=== PATIENT | female | born 1985 | race Caucasian/White ===

== ENCOUNTER 2020-08-18 17:57 | Inpatient (IN) | payer OTHER ==
[~2020-08-18] VITALS: Ht 162.6 cm; Wt 66.8 kg
[2020-08-18] MEDS ORDERED: NEWBORN KIT ONE (18:28)
[2020-08-18 18:53] LABS: BASOPHILS % (AUTO) 0 % (0-1); EOSINOPHILS % (AUTO) 0 % (1-7); LYMPHOCYTES % (AUTO) 18 % (22-44); MEAN CORPUSCULAR HEMOGLOBIN 28.9 pg (27.0-34.8); MEAN CORPUSCULAR HGB CONC 33.1 g/dL (32.4-35.8); MEAN PLATELET VOLUME 8.9 fL (7.4-10.4); MONOCYTES % (AUTO) 6 % (2-9); NEUTROPHILS % (AUTO) 76 % (42-75); PLATELET COUNT 273 x10^3/uL (130-400); RED BLOOD COUNT 3.51 x10^6/uL (3.82-5.3); RED CELL DISTRIBUTION WIDTH 13.4 % (9.6-15.2)
[2020-08-18 18:54] LABS: MD NO
[2020-08-18 18:56] LABS: ALANINE AMINOTRANSFERASE 22 U/L (12-78); ALBUMIN 2.6 g/dL (3.4-5.0); ANION GAP 6 mmol/L (5-15); CALCIUM 8.2 mg/dL (8.5-10.1); CHLORIDE 110 mmol/L (98-107); CREATININE 0.66 mg/dL (0.55-1.02)
[2020-08-18 18:57] LABS: BILIRUBIN, DIRECT < 0.1 mg/dL (0.1-0.2)
[2020-08-18 18:58] LABS: ALKALINE PHOSPHATASE 207 U/L (45-117); BILIRUBIN,TOTAL 0.4 mg/dL (0.2-1.0); TOTAL PROTEIN 6.1 g/dL (6.4-8.2)
[2020-08-18 19:10] VITALS: BP 137/84
[2020-08-18 19:54] LABS: MICROSCOPIC INDICATED
[2020-08-18] MEDS ORDERED: FENTANYL PF 100 MCG/2ML IVPush PRN (20:30)
[2020-08-18] MEDS ORDERED: TERBUTALINE 1 MG/ML, 1ML SQ PRN (20:30)
[2020-08-18] MEDS ORDERED: OXYTOCIN 30U/ 0.9% NaCL 500ML 500 ML IV ONE (20:30)
[2020-08-18] MEDS ORDERED: FENTANYL PF 100 MCG/2ML IV PRN (20:30)
[2020-08-18] MEDS ORDERED: METOCLOPRAMIDE 5 MG/ML, 2ML IVPush PRN (20:30)
[2020-08-18] MEDS ORDERED: TERBUTALINE 1 MG/ML, 1ML IVPush PRN (20:30)
[2020-08-18] MEDS: LACTATED RINGERS 1,000 ML IV SCH (20:30)
[2020-08-18] MEDS ORDERED: SODIUM CITRATE/CITRIC ACID 30 ML UDC PO PRN (20:30)
[2020-08-18] MEDS ORDERED: ONDANSETRON 2MG/ML, 2ML IVPush PRN (20:30)
[2020-08-18] MEDS: D5%-LACTATED RINGERS 1,000 ML IV SCH (20:30)
[2020-08-18] MEDS ORDERED: SODIUM CHLORIDE FLUSH 10ML SYR IVF PRN (20:30)
[2020-08-18] MEDS ORDERED: CALCIUM CARBONATE 500 MG TAB.CHEW PO PRN (20:30)
[2020-08-18] MEDS ORDERED: MISOPROSTOL 25 MCG TABLET ONE (20:40)
[2020-08-18] MEDS ORDERED: OXYTOCIN 30U/ 0.9% NaCL 500ML 500 ML ONE (21:17)
[2020-08-18] MEDS: MISOPROSTOL 25 MCG TABLET VG PRN (21:20)
[2020-08-19] MEDS ORDERED: MISOPROSTOL 25 MCG TABLET ONE (01:10)
[2020-08-19] MEDS: MISOPROSTOL 25 MCG TABLET VG PRN (01:20)
[2020-08-19] MEDS: LACTATED RINGERS 1,000 ML IV SCH ×5 (04:30→18:16)
[2020-08-19] MEDS: D5%-LACTATED RINGERS 1,000 ML IV SCH ×2 (04:30→20:30)
[2020-08-19] MEDS ORDERED: hydrALAzine 20 MG/ML, 1ML ONE (07:24)
[2020-08-19] MEDS ORDERED: LABETALOL 5MG/ML 40ML VIAL IVPush ONE (07:30)
[2020-08-19] MEDS ORDERED: hydrALAzine 20 MG/ML, 1ML IVPush ONE ×3 (07:30)
[2020-08-19] MEDS ORDERED: OXYTOCIN 30U/ 0.9% NaCL 500ML 500 ML IV PRN (08:30)
[2020-08-19] MEDS ORDERED: BUPIVACAINE 0.25% ONE (13:53)
[2020-08-19] MEDS ORDERED: DIPHENHYDRAMINE 50 MG/ML, 1ML IVPush PRN (14:00)
[2020-08-19] MEDS ORDERED: EPHEDRINE 50 MG/ML, 1ML IVPush PRN (14:00)
[2020-08-19] MEDS: FENTANYL/BUPIV./NS/PF 250 ML EPIDCONT SCH (14:00)
[2020-08-19] MEDS ORDERED: NALOXONE 0.4 MG/ML, 1ML IVPush PRN (14:00)
[2020-08-19] MEDS ORDERED: LACTATED RINGERS 1,000 ML IVBOLUS PRN (14:00)
[2020-08-19] MEDS ORDERED: ONDANSETRON 2MG/ML, 2ML IVPush PRN (14:00)
[2020-08-19] MEDS ORDERED: FENTANYL/BUPIV./NS/PF 250 ML EPIDCONT ONE (14:13)
[2020-08-20 01:39] VITALS: BP 138/68
[2020-08-20] MEDS: D5%-LACTATED RINGERS 1,000 ML IV SCH ×5 (02:00→12:30)
[2020-08-20] MEDS ORDERED: ACETAMINOPHEN 325 MG TABLET ONE ×2 (02:22→09:38)
[2020-08-20] MEDS: ACETAMINOPHEN 325 MG TABLET PO PRN ×2 (02:24→09:39)
[2020-08-20] MEDS ORDERED: ALUMINUM/MAG/SIMETHICONE 30 ML UDC PO PRN (02:30)
[2020-08-20] MEDS ORDERED: OXYTOCIN 30U/ 0.9% NaCL 500ML 500 ML ONE ×2 (02:50→15:02)
[2020-08-20] MEDS: LACTATED RINGERS 1,000 ML IV SCH ×4 (06:00→14:00)
[2020-08-20] MEDS ORDERED: AMPICILLIN 2 GM in SODIUM CHLORIDE 0.9% 100 ML IV SCH (09:00)
[2020-08-20] MEDS ORDERED: GENTAMICIN PER PHARMACY MC PRN (10:00)
[2020-08-20] MEDS ORDERED: GENTAMICIN 150 MG in SODIUM CHLORIDE 0.9% 50 ML IV ONE (12:00)
[2020-08-20] MEDS ORDERED: PHARMACOKINETIC MONITORING MC PRN (12:00)
[2020-08-20] MEDS ORDERED: FENTANYL/BUPIV./NS/PF 250 ML EPIDCONT ONE (12:25)
[2020-08-20] MEDS ORDERED: FENTANYL PF 100 MCG/2ML ONE (12:42)
[2020-08-20] MEDS ORDERED: BUPIVACAINE 0.25% ONE (12:42)
[2020-08-20] MEDS: FENTANYL/BUPIV./NS/PF 250 ML EPIDCONT SCH (14:00)
[2020-08-20] MEDS ORDERED: OXYcodone IR 5MG TABLET PO PRN (15:00)
[2020-08-20] MEDS ORDERED: ACETAMINOPHEN 325 MG TABLET PO PRN (15:00)
[2020-08-20] MEDS ORDERED: MISOPROSTOL 200 MCG TABLET PR PRN (15:00)
[2020-08-20] MEDS ORDERED: OXYcodone/APAP 5/325MG TABLET PO PRN (15:00)
[2020-08-20] MEDS ORDERED: SIMETHICONE 80 MG CHEW TAB PO PRN (15:00)
[2020-08-20] MEDS ORDERED: ONDANSETRON 2MG/ML, 2ML IV PRN (15:00)
[2020-08-20] MEDS ORDERED: IBUPROFEN 600 MG TABLET ONE (15:02)
[2020-08-20] MEDS: OXYTOCIN 30U/ 0.9% NaCL 500ML 500 ML IV SCH (15:04)
[2020-08-20] MEDS: IBUPROFEN 600 MG TABLET PO PRN ×2 (15:04→22:29)
[2020-08-20 17:00] VITALS: BP 129/68
[2020-08-20 20:00] VITALS: BP 149/84
[2020-08-20] MEDS ORDERED: GENTAMICIN 120 MG in SODIUM CHLORIDE 0.9% 50 ML IV SCH (20:00)
[2020-08-20] MEDS: DOCUSATE 100 MG CAPSULE PO PRN (22:28)
[2020-08-21] VITALS (7 sets, daily range): BP systolic 138–156; BP diastolic 61–95
[2020-08-21 00:10] LABS: MEAN CORPUSCULAR HEMOGLOBIN 29.1 pg (27.0-34.8); MEAN CORPUSCULAR HGB CONC 32.7 g/dL (32.4-35.8); MEAN PLATELET VOLUME 9.4 fL (7.4-10.4); PLATELET COUNT 233 x10^3/uL (130-400); RED BLOOD COUNT 3.11 x10^6/uL (3.82-5.3); RED CELL DISTRIBUTION WIDTH 13.9 % (9.6-15.2)
[2020-08-21] MEDS: OXYTOCIN 30U/ 0.9% NaCL 500ML 500 ML IV SCH ×2 (01:00→11:00)
[2020-08-21 01:23] LABS: MD YES
[2020-08-21 01:25] LABS: BAND#(MANUAL) 2.31 x10^3/uL; BANDS%(MANUAL) 8 % (0-7); LYMPH#(MANUAL) 1.16 x10^3/uL (1-3.4); LYMPHS% (MANUAL) 4 % (22-44); METAMYELOCYTES# (MANUAL) 0.29 x10^3/uL (0-0); METAMYELOCYTES% (MANUAL) 1 % (0-1); MONOS#(MANUAL) 0.87 x10^3/uL (0.3-2.7); MONOS% (MANUAL) 3 % (2-9); SEG#(MANUAL) 24.28 x10^3/uL (1.8-6.8); SEGS% (MANUAL) 84 % (42-75)
[2020-08-21 01:26] LABS: POLYCHROMASIA 1+
[2020-08-21 01:27] LABS: <PLATELET ESTIMATE> ADEQUATE; ECHINOCYTES 1+; OVALOCYTES 1+; TEAR DROPS 1+; TOXIC GRAN 1+
[2020-08-21 01:29] LABS: LARGE PLATELETS 1+
[2020-08-21] MEDS: PRENATAL VIT/IRON/FA 1 EACH TABLET PO SCH (08:30)
[2020-08-21] MEDS: DOCUSATE 100 MG CAPSULE PO PRN ×2 (08:30→20:13)
[2020-08-21] MEDS: IBUPROFEN 600 MG TABLET PO PRN ×2 (13:07→20:13)
[2020-08-21] MEDS ORDERED: HEMORRHOIDAL OINT, 28 GM (PREP H) RC PRN (18:00)
[2020-08-21 19:01] LABS: BASOPHILS % (AUTO) 0 % (0-1); EOSINOPHILS % (AUTO) 0 % (1-7); LYMPHOCYTES % (AUTO) 9 % (22-44); MEAN PLATELET VOLUME 8.8 fL (7.4-10.4); MONOCYTES % (AUTO) 6 % (2-9); NEUTROPHILS % (AUTO) 84 % (42-75); PLATELET COUNT 223 x10^3/uL (130-400); RED BLOOD COUNT 2.85 x10^6/uL (3.82-5.3)
[2020-08-21 19:04] LABS: MD NO
[2020-08-21 19:07] LABS: ALANINE AMINOTRANSFERASE 25 U/L (12-78); ANION GAP 3 mmol/L (5-15); CALCIUM 8.4 mg/dL (8.5-10.1); CHLORIDE 115 mmol/L (98-107)
[2020-08-21 19:12] LABS: ALKALINE PHOSPHATASE 161 U/L (45-117); BILIRUBIN,TOTAL 0.2 mg/dL (0.2-1.0); TOTAL PROTEIN 5.2 g/dL (6.4-8.2)
[2020-08-22] VITALS (8 sets, daily range): BP systolic 144–174; BP diastolic 67–92
[2020-08-22] MEDS: IBUPROFEN 600 MG TABLET PO PRN ×4 (03:01→23:32)
[2020-08-22 07:17] LABS: BASOPHILS % (AUTO) 0 % (0-1); EOSINOPHILS % (AUTO) 1 % (1-7); LYMPHOCYTES % (AUTO) 14 % (22-44); MEAN CORPUSCULAR HEMOGLOBIN 29.1 pg (27.0-34.8); MEAN CORPUSCULAR HGB CONC 33.1 g/dL (32.4-35.8); MEAN PLATELET VOLUME 9.2 fL (7.4-10.4); MONOCYTES % (AUTO) 6 % (2-9); NEUTROPHILS % (AUTO) 79 % (42-75); PLATELET COUNT 207 x10^3/uL (130-400); RED BLOOD COUNT 2.59 x10^6/uL (3.82-5.3); RED CELL DISTRIBUTION WIDTH 13.6 % (9.6-15.2)
[2020-08-22 07:24] LABS: ALANINE AMINOTRANSFERASE 20 U/L (12-78); ALBUMIN 1.9 g/dL (3.4-5.0); CALCIUM 8.3 mg/dL (8.5-10.1); CHLORIDE 116 mmol/L (98-107); CREATININE 0.68 mg/dL (0.55-1.02)
[2020-08-22 07:26] LABS: ALKALINE PHOSPHATASE 135 U/L (45-117); BILIRUBIN,TOTAL 0.3 mg/dL (0.2-1.0); TOTAL PROTEIN 4.9 g/dL (6.4-8.2)
[2020-08-22 07:35] LABS: ANION GAP 5 mmol/L (5-15)
[2020-08-22] MEDS: DOCUSATE 100 MG CAPSULE PO PRN (07:42)
[2020-08-22] MEDS: PRENATAL VIT/IRON/FA 1 EACH TABLET PO SCH (07:42)
[2020-08-22 07:53] LABS: MD NO
[2020-08-22] MEDS ORDERED: MAGNESIUM SULFATE PMX 4GM/100M 0 ML ONE (20:11)
[2020-08-22] MEDS ORDERED: MAGNESIUM SULF. PMX 20GM/500ML 500 ML IV ONE (20:11)
[2020-08-22] MEDS ORDERED: LABETALOL 5MG/ML, 20ML ONE (20:25)
[2020-08-22] MEDS ORDERED: LABETALOL 5MG/ML, 20ML IVPush PRN (20:30)
[2020-08-22] MEDS ORDERED: MAGNESIUM SULFATE PMX 4GM/100M 100 ML IVPB ONE (20:30)
[2020-08-22] MEDS ORDERED: LABETALOL 5MG/ML, 20ML IVPush STA (22:14)
[2020-08-22] MEDS ORDERED: IBUPROFEN 600 MG TABLET ONE (23:31)
[2020-08-23 03:25] LABS: BASOPHILS % (AUTO) 0 % (0-1); EOSINOPHILS % (AUTO) 1 % (1-7); LYMPHOCYTES % (AUTO) 19 % (22-44); MEAN CORPUSCULAR HEMOGLOBIN 29.1 pg (27.0-34.8); MEAN CORPUSCULAR HGB CONC 33.4 g/dL (32.4-35.8); MEAN PLATELET VOLUME 8.5 fL (7.4-10.4); MONOCYTES % (AUTO) 5 % (2-9); NEUTROPHILS % (AUTO) 76 % (42-75); PLATELET COUNT 259 x10^3/uL (130-400); RED CELL DISTRIBUTION WIDTH 14.2 % (9.6-15.2)
[2020-08-23 03:30] LABS: MD NO
[2020-08-23 03:35] LABS: ALANINE AMINOTRANSFERASE 26 U/L (12-78); ALBUMIN 2.2 g/dL (3.4-5.0); ANION GAP 7 mmol/L (5-15); CALCIUM 8.1 mg/dL (8.5-10.1); CHLORIDE 111 mmol/L (98-107); CREATININE 0.65 mg/dL (0.55-1.02)
[2020-08-23 03:37] LABS: ALKALINE PHOSPHATASE 154 U/L (45-117); BILIRUBIN,TOTAL 0.2 mg/dL (0.2-1.0); TOTAL PROTEIN 5.5 g/dL (6.4-8.2)
[2020-08-23] MEDS ORDERED: MAGNESIUM SULF. PMX 20GM/500ML 500 ML IV ONE ×2 (04:05→15:29)
[2020-08-23] MEDS: MAGNESIUM SULF. PMX 20GM/500ML 500 ML IV PRN ×2 (04:43→15:31)
[2020-08-23] MEDS ORDERED: LABETALOL 200 MG TABLET ONE ×2 (05:52→17:59)
[2020-08-23] MEDS: LABETALOL 200 MG TABLET PO SCH ×2 (05:55→18:03)
[2020-08-23] MEDS ORDERED: IBUPROFEN 600 MG TABLET ONE ×2 (06:54→18:06)
[2020-08-23] MEDS ORDERED: FERROUS SULFATE 325 MG TABLET ONE (07:34)
[2020-08-23] MEDS: IBUPROFEN 600 MG TABLET PO PRN (07:48)
[2020-08-23] MEDS: FERROUS SULFATE 325 MG TABLET PO SCH (07:48)
[2020-08-23 08:04] VITALS: BP 130/72
[2020-08-23] MEDS ORDERED: LACTATED RINGERS 1,000 ML IV PRN (10:00)
[2020-08-23] MEDS ORDERED: PRENATAL VIT/IRON/FA 1 EACH TABLET ONE (10:38)
[2020-08-23] MEDS: PRENATAL VIT/IRON/FA 1 EACH TABLET PO SCH (10:41)
[2020-08-23] MEDS ORDERED: ACETAMINOPHEN 325 MG TABLET ONE (18:17)
[2020-08-23] MEDS: ACETAMINOPHEN 325 MG TABLET PO PRN (18:19)
[2020-08-23 19:53] VITALS: BP 128/74
[2020-08-24] VITALS (8 sets, daily range): BP systolic 136–169; BP diastolic 65–87
[2020-08-24] MEDS: ACETAMINOPHEN 325 MG TABLET PO PRN (00:24)
[2020-08-24] MEDS ORDERED: DOCUSATE 100 MG CAPSULE ONE (06:00)
[2020-08-24] MEDS ORDERED: MEASLES,MUMPS&RUBELLA VACC/PF 0.5 ML SQ-VACC ONE (06:00)
[2020-08-24] MEDS: LABETALOL 200 MG TABLET PO SCH (06:01)
[2020-08-24] MEDS: DOCUSATE 100 MG CAPSULE PO PRN (06:01)
[2020-08-24] MEDS ORDERED: LABETALOL 100 MG TABLET PO ONE (07:00)
[2020-08-24] MEDS ORDERED: LABETALOL 200 MG TABLET PO ONE (07:00)
[2020-08-24] MEDS: FERROUS SULFATE 325 MG TABLET PO SCH (07:45)
[2020-08-24] MEDS: PRENATAL VIT/IRON/FA 1 EACH TABLET PO SCH (07:46)
[2020-08-24] MEDS ORDERED: LABE200T6 PO (08:07)
[2020-08-24] MEDS ORDERED: IBUP-1222 PO (08:07)
[2020-08-24] MEDS ORDERED: DOCU-131 PO (08:07)
[2020-08-24] MEDS ORDERED: FERR325T5 PO (08:07)
[2020-08-24] MEDS ORDERED: LABETALOL 200 MG TABLET PO SCH ×2 (18:00)
[2020-08-24] MEDS ORDERED: LABETALOL 300 MG TABLET PO SCH (18:00)
== END 2020-08-24 15:54 | disposition home or self-care (01) | DRG 807 ==
LOC: LDIP 17:57 → 2NW 08-20 16:49 → 2NE 08-22 20:51 → 2NW 08-23 23:13
PROVIDERS: ADMIT Obstetrics & Gynecology; ATTEND Obstetrics & Gynecology
PROC: 10E0XZZ Delivery of Products of Conception, External Approach (ICD-10-PCS; principal; 2020-08-20)
PROC: 0W8NXZZ Division of Female Perineum, External Approach (ICD-10-PCS; 2020-08-20)
PROC: 3E0R3BZ Introduction of Anesthetic Agent into Spinal Canal, Percutaneous Approach (ICD-10-PCS; 2020-08-20)
PROC: 00HU33Z Insertion of Infusion Device into Spinal Canal, Percutaneous Approach (ICD-10-PCS; 2020-08-20)
PROC: 3E0234Z Introduction of Serum, Toxoid and Vaccine into Muscle, Percutaneous Approach (ICD-10-PCS; 2020-08-21)
DX: O13.4 Gestational [pregnancy-induced] hypertension without significant proteinuria, complicating childbirth (principal); Z37.0 Single live birth; F41.9 Anxiety disorder, unspecified; O99.344 Other mental disorders complicating childbirth; O14.14 Severe pre-eclampsia complicating childbirth; E87.6 Hypokalemia; O75.89 Other specified complications of labor and delivery; Z20.828 Contact with and (suspected) exposure to other viral communicable diseases; Z3A.38 38 weeks gestation of pregnancy; Z28.21 Immunization not carried out because of patient refusal
CPT/HCPCS: 36415; J7121; 80053; 81001; 82248; 82570; 83735; 84156; 84550; 85025; 85461; 86592; 86850; 86900; 87635; G0378; J0290; J2790; J0360; J1580; J2590; J3010; J3475; J7120